=== PATIENT | male | born 1980 | race Caucasian/White ===

== ENCOUNTER 2016-09-02 12:11 | Emergency (ER) | payer OTHER ==
[~2016-09-02] VITALS: Ht 175.3 cm; Wt 89.0 kg
[2016-09-02 12:17] VITALS: BP 130/91; PULSE 67; TEMP 36.4; O2SAT 98; Ht 175.3 cm; Wt 89.0 kg
[2016-09-02] MEDS ORDERED: IBUPROFEN 600 MG TAB PO STA (12:29)
--- NOTE | 2016-09-02 12:35 | EMERGENCY ROOM VISIT NOTE ---
ED Visit Note First contact with patient: 12:22 CHIEF COMPLAINT: Dog bite left lower leg HISTORY OF PRESENT ILLNESS: This 35-year-old male presents the ER with chief complaint of a dog bite to his left lower leg. The patient states that he was at work doing maintenance at an apartment building. He was working in an apartment and left to get a piece of equipment and when he came back the owners dog attacked his left lower leg. The patient states there is minor bleeding but he states it is painful. His tetanus is up-to-date. He states that his employer called the dogs that to make sure that the dog's immunizations were up- to-date and they were in fact up-to-date. REVIEW OF SYSTEMS: 6 system review was performed and was negative unless stated otherwise in history of present illness. PMH: The patient is healthy; there is no significant medical or surgical history. SOCIAL HISTORY: Patient admits to tobacco and alcohol use. PHYSICAL EXAM: Vital Signs: Were reviewed Reviewed Nurse's notes. GENERAL: 35- year-old white male appears in no acute distress. MENTAL Status: Alert and oriented 3. SKIN: On the anterior proximal aspect of the left lower leg there is a puncture wound.. The wound is already scabbed over and it is not bleeding. There is some surrounding ecchymosis EMERGENCY DEPARTMENT COURSE: The patient was evaluated. The patient's EMR and medication list were reviewed. The patient was given Motrin 600 mg by mouth for pain. The wound was scrubbed and the scab removed and copious irrigation was performed. Antibiotic ointment and a bandage was applied. DIAGNOSIS: Dog bite left lower leg DISCHARGE INSTRUCTIONS & TREATMENT: Watch the area carefully for signs of infection such as redness, swelling, or tenderness. Return if any of these appear for re-evaluation and possible IV antibiotics. Take Augmentin as prescribed. Ice intermittently over the next 24 hours. Recommend ibuprofen 600 mg every 6 hours with food for pain. Current/Historical Medications No Active Prescriptions or Reported Meds Allergies Coded Allergies: NO KNOWN DRUG ALLERGIES (Verified Allergy, Unknown, ., 04/22/15) Vital Signs Date Time Temp Pulse Resp B/P Pulse Ox O2 Delivery O2 Flow Rate FiO2 09/02/16 12:17 36.4 67 16 130/91 98 Room Air Departure Information Prescriptions No Active Prescriptions or Reported Meds Referrals No Doctor, Assigned (PCP) Patient Instructions [facility]
[2016-09-02] MEDS ORDERED: AMOX875T PO (12:36)
== END 2016-09-02 12:43 | disposition home or self-care (01) ==
LOC: C.EDB 12:13 → C.EDD 12:43
DX: S81.852A Open bite, left lower leg, initial encounter (principal); W54.0XXA Bitten by dog, initial encounter; Y99.0 Civilian activity done for income or pay; Y92.039 Unspecified place in apartment as the place of occurrence of the external cause; F17.200 Nicotine dependence, unspecified, uncomplicated